=== PATIENT | female | born 1985 | race African-American/Black ===

== ENCOUNTER 2017-08-06 04:45 | Emergency (ER) | payer MEDICAID ==
[~2017-08-06] VITALS: Ht 167.6 cm; Wt 128.0 kg
[~2017-08-06 04:45] MED LIST: ALBU8.5H5; Dilantin; PHEN100C PO
[2017-08-06] MEDS ORDERED: SODIUM CHLORIDE 0.9% 1,000 ML IV ONE (05:19)
[2017-08-06] MEDS ORDERED: SODIUM CHLORIDE FLUSH 10ML SYR IVF ONE (05:30)
[2017-08-06] MEDS ORDERED: SODIUM CHLORIDE 0.9% 1,000ML IVBOLUS ONE (05:30)
[2017-08-06] MEDS ORDERED: ACETAMINOPHEN 325 MG TABLET PO ONE (05:30)
[2017-08-06] MEDS ORDERED: ONDANSETRON 2MG/ML, 2ML IVP ONE (05:30)
[2017-08-06] MEDS ORDERED: ACETAMINOPHEN 325 MG TABLET ONE (05:40)
[2017-08-06] MEDS ORDERED: ONDANSETRON 2MG/ML, 2ML ONE (05:40)
[2017-08-06 05:47] LABS: HEMATOCRIT 38.4 % (34.6-47.8); HEMOGLOBIN 12.5 g/dL (11.7-16.4); WHITE BLOOD COUNT 5.8 x10^3/uL (3.4-10)
[2017-08-06 06:00] LABS: ASPARTATE AMINO TRANSFERASE 19 U/L (15-37); BLOOD UREA NITROGEN 6 mg/dL (7-18)
[2017-08-06 06:18] LABS: RAPID INFLUENZA A POSITIVE (Negative); RAPID INFLUENZA B Negative (Negative)
[2017-08-06] MEDS ORDERED: CEFTRIAXONE PMX 1GM/50ML 50 ML ONE (06:25)
[2017-08-06] MEDS ORDERED: CEFTRIAXONE PMX 1GM/50ML 50 ML IV ONE (06:30)
[2017-08-06 07:16] VITALS: BP 129/70
== END 2017-08-06 07:19 | disposition home or self-care (01) ==
LOC: ED 06:16
DX: O99.512 Diseases of the respiratory system complicating pregnancy, second trimester (principal); J15.9 Unspecified bacterial pneumonia; J09.X2 Influenza due to identified novel influenza A virus with other respiratory manifestations; J40 Bronchitis, not specified as acute or chronic; O16.2 Unspecified maternal hypertension, second trimester; I10 Essential (primary) hypertension; Z3A.17 17 weeks gestation of pregnancy; G40.909 Epilepsy, unspecified, not intractable, without status epilepticus
CPT/HCPCS: 36415; 71010; 80053; 85025; 87400; 96361; 96365; 96375; 99285; J0696; J2405; J7030

== ENCOUNTER 2017-09-14 13:38 | Emergency (ER) | payer MEDICAID ==
[~2017-09-14] VITALS: Ht 167.6 cm; Wt 112.0 kg
[2017-09-14] MEDS ORDERED: ONDANSETRON ODT 4 MG ONE (14:25)
[2017-09-14] MEDS ORDERED: FAMOTIDINE 20 MG TABLET ONE ×2 (14:25→14:29)
[2017-09-14] MEDS ORDERED: MAALOX/HYOSCYAMINE/LIDOCAINE 45 ML BTL ONE (14:25)
[2017-09-14] MEDS ORDERED: MAALOX/HYOSCYAMINE/LIDOCAINE 45 ML BTL PO ONE (14:30)
[2017-09-14] MEDS ORDERED: FAMOTIDINE 20 MG TABLET PO ONE (14:30)
[2017-09-14] MEDS ORDERED: ONDANSETRON ODT 4 MG PO ONE (14:30)
[2017-09-14 14:45] LABS: ALANINE AMINOTRANSFERASE 40 U/L (12-78); ALBUMIN 3.5 g/dL (3.4-5.0); ANION GAP 5 mmol/L (5-15); BASOPHILS # (AUTO) 0.03 x10^3/uL (0-0.1); BASOPHILS % (AUTO) 0 % (0-1); CALCIUM 8.4 mg/dL (8.5-10.1); CHLORIDE 105 mmol/L (98-107); CREATININE 0.75 mg/dL (0.55-1.02); EOSINOPHILS # (AUTO) 0.15 x10^3/uL (0-0.4); EOSINOPHILS % (AUTO) 2 % (1-7); LYMPHOCYTES # (AUTO) 2.11 x10^3/uL (1-3.4); LYMPHOCYTES % (AUTO) 22 % (22-44); MD NO; MEAN CORPUSCULAR HEMOGLOBIN 27.9 pg (27.0-34.8); MEAN CORPUSCULAR HGB CONC 32.1 g/dL (32.4-35.8); MEAN CORPUSCULAR VOLUME 86.9 fL (80-100); MEAN PLATELET VOLUME 7.4 fL (7.4-10.4); MONOCYTES # (AUTO) 0.33 x10^3/uL (0.2-0.8); MONOCYTES % (AUTO) 3 % (2-9); NEUTROPHILS # (AUTO) 6.94 x10^3/uL (1.8-6.8); NEUTROPHILS % (AUTO) 73 % (42-75); PLATELET COUNT 375 x10^3/uL (130-400); RED BLOOD COUNT 4.68 x10^6/uL (3.82-5.3); RED CELL DISTRIBUTION WIDTH 16.3 % (9.6-15.2)
[2017-09-14 14:50] LABS: ALKALINE PHOSPHATASE 102 U/L (45-117); BILIRUBIN,TOTAL 0.2 mg/dL (0.2-1.0); TOTAL PROTEIN 7.7 g/dL (6.4-8.2)
[2017-09-14 15:13] VITALS: BP 125/83
== END 2017-09-14 16:03 | disposition home or self-care (01) ==
LOC: ED 14:00
DX: K21.9 Gastro-esophageal reflux disease without esophagitis (principal); J45.909 Unspecified asthma, uncomplicated; Z90.49 Acquired absence of other specified parts of digestive tract
CPT/HCPCS: 36415; 80053; 83690; 84703; 85025; 99284; Q0162

== ENCOUNTER 2018-03-16 07:56 | Emergency (ER) | payer MEDICAID ==
[~2018-03-16] VITALS: Ht 167.6 cm; Wt 111.0 kg
[2018-03-16 10:51] LABS: MEAN CORPUSCULAR HEMOGLOBIN 29.3 pg (27.0-34.8); MEAN CORPUSCULAR HGB CONC 33.2 g/dL (32.4-35.8); MEAN CORPUSCULAR VOLUME 88.5 fL (80-100); MEAN PLATELET VOLUME 7.4 fL (7.4-10.4); PLATELET COUNT 374 x10^3/uL (130-400); RED BLOOD COUNT 4.82 x10^6/uL (3.82-5.3); RED CELL DISTRIBUTION WIDTH 14.4 % (9.6-15.2)
[2018-03-16 11:10] LABS: MD YES
[2018-03-16 11:11] LABS: BASOS#(MANUAL) 0.19 x10^3/uL (0-0.1); BASOS% (MANUAL) 1 % (0-1); LYMPH#(MANUAL) 1.48 x10^3/uL (1-3.4); LYMPHS% (MANUAL) 8 % (22-44); MONOS#(MANUAL) 0.19 x10^3/uL (0.3-2.7); MONOS% (MANUAL) 1 % (2-9); SEG#(MANUAL) 16.65 x10^3/uL (1.8-6.8); SEGS% (MANUAL) 90 % (42-75)
[2018-03-16 11:12] LABS: <PLATELET ESTIMATE> ADEQUATE; <PLT MORPHOLOGY> NORMAL PLT MORPH; <RBC MORPHOLOGY> NORMAL
[2018-03-16 11:40] LABS: MICROSCOPIC INDICATED
[2018-03-16 12:01] LABS: CULTURE INDICATED? YES
[2018-03-16 13:20] VITALS: BP 121/68
[2018-03-16] MEDS ORDERED: CEFTRIAXONE 1,000 MG in SODIUM CHLORIDE 0.9% 50 ML IVPB ONE (13:30)
[2018-03-16] MEDS ORDERED: AZITHROMYCIN 500 MG TABLET PO ONE (13:30)
[2018-03-16] MEDS ORDERED: CEFTRIAXONE PMX 1GM/50ML 50 ML ONE (13:47)
[2018-03-16] MEDS ORDERED: AZITHROMYCIN 500 MG TABLET ONE (13:47)
== END 2018-03-16 15:24 | disposition home or self-care (01) ==
LOC: ED 09:14
DX: R10.2 Pelvic and perineal pain (principal); D72.829 Elevated white blood cell count, unspecified; N70.11 Chronic salpingitis; K21.9 Gastro-esophageal reflux disease without esophagitis; J45.909 Unspecified asthma, uncomplicated
CPT/HCPCS: 36415; 74176; 76801; 81001; 84702; 85025; 86901; 87086; 87147; 96365; 99285; J0696